=== PATIENT | male | born 1960 | race African-American/Black ===

== ENCOUNTER 2019-05-16 22:30 | Emergency (ER) | payer OTHER ==
[~2019-05-16] VITALS: Ht 170.2 cm; Wt 83.9 kg
[~2019-05-16 22:30] MED LIST: ASPIRIN81 M2 PO; COLACE100 MG PO; LEVAQUIN 500 M500 M2 PO; LISINOPRIL10 MG PO; NITROGLYCERIN0.4 MG SL; NON-ASPIRIN325 MG PO; PANTOPRAZOLE SO40 M1 PO; PLAVIX 75 MG TA75 M1 PO; SIMVASTATIN PO; TUMS PO
[2019-05-16] MEDS ORDERED: GABAPEN PO (22:41)
[2019-05-17 00:18] LABS: ABSOLUTE NEUTROPHILS 6.9 thou/uL (1.4-8.2); BASOPHILS 0.7 % (0.0-2.0); EOSINOPHILS 1.1 % (0.0-3.0); HEMATOCRIT 44.5 % (42.0-52.0); HEMOGLOBIN 14.8 gm/dL (14.0-18.0); LYMPHOCYTES 25.2 % (24.0-44.0); MCH 30.3 pg (26.0-34.0); MCHC 33.2 g/dL (28.0-37.0); PLATELET COUNT 400 thou/uL (150-400); RBC 4.89 mil/uL (4.50-6.00); RDW 13.9 % (10.5-14.5); WBC 10.9 thou/uL (4.0-11.0)
[2019-05-17 00:25] LABS: CALCIUM 9.6 mg/dL (8.5-10.1); CREATININE 1.1 mg/dL (0.7-1.3); POTASSIUM 4.7 mmol/L (3.5-5.1)
[2019-05-17] MEDS ORDERED: VALIUM5 MG PO (01:31)
[2019-05-17 02:12] VITALS: BP 195/101
== END 2019-05-17 02:16 | disposition home or self-care (01) ==
LOC: ER 22:30
PROVIDERS: Emergency Medicine Emergency Medical Services
DX: E11.40 Type 2 diabetes mellitus with diabetic neuropathy, unspecified (principal); M79.672 Pain in left foot; M79.671 Pain in right foot; I10 Essential (primary) hypertension; E78.00 Pure hypercholesterolemia, unspecified; I25.2 Old myocardial infarction; Z79.899 Other long term (current) drug therapy; Z90.89 Acquired absence of other organs

== ENCOUNTER 2020-09-18 17:33 | Emergency (ER) | payer OTHER ==
[~2020-09-18] VITALS: Ht 170.2 cm; Wt 74.8 kg
[~2020-09-18 17:33] MED LIST changes: +GABAPEN PO; +VALIUM5 MG PO
[2020-09-18 20:28] LABS: HEMATOCRIT 48.9 % (42.0-52.0); HEMOGLOBIN 16.2 gm/dL (14.0-18.0); MCH 30.2 pg (26.0-34.0); MCHC 33.1 g/dL (28.0-37.0); MCV 91.3 fL (80.0-100.0); RBC 5.36 mil/uL (4.50-6.00); RDW 14.2 % (10.5-14.5); WBC 12.9 thou/uL (4.0-11.0)
[2020-09-18 20:49] LABS: ANION GAP 5 mmol/L (7-16); BUN 15 mg/dL (7-18); CHLORIDE 104 mmol/L (98-107); CO2 28 mmol/L (21-32); CREATININE 1.2 mg/dL (0.7-1.3); GLUCOSE 335 mg/dL (74-106); POTASSIUM 4.9 mmol/L (3.5-5.1); SODIUM 137 mmol/L (136-145)
[2020-09-18 20:59] LABS: ALBUMIN 3.2 g/dL (3.4-5.0); SGOT 17 U/L (15-37); SGPT 15 U/L (16-63); TOTAL BILIRUBIN 0.2 mg/dL (0.2-1.0); TOTAL PROTEIN 7.4 g/dL (6.4-8.2); TROPONIN-I <0.06 ng/mL (<0.06)
[2020-09-18 22:22] LABS: URINE BILIRUBIN NEGATIVE (Negative); URINE BLOOD NEGATIVE (Negative); URINE CLARITY CLEAR; URINE COLOR YELLOW; URINE GLUCOSE-RANDOM* 3+ (Negative); URINE KETONES NEGATIVE (Negative); URINE LEUKOCYTES-REFLEX NEGATIVE (Negative); URINE NITRITE-REFLEX NEGATIVE (Negative); URINE PROTEIN (DIPSTICK) NEGATIVE (Negative); URINE SPECIFIC GRAVITY 1.015 (1.005-1.035); URINE UROBILINOGEN 0.2 E.U./dl (0.2-1.0)
[2020-09-19 05:00] VITALS: BP 154/111
--- NOTE | 2020-09-19 07:11 | EKG ---
[place] [address] [facility] [email or web address] [address] ELECTROCARDIOGRAM REPORT Name: MULUGETA WICK III Room #: [facility]#: [id number] Admission: 09/18/20 Attend Phys: Discharge: 09/19/20 Date of : 62 Report #: [id number] [facility] ED Test Date: 2020-09-18 Test Time: 18:07:46 Pat Name: MULUGETA WICK Department: Room: Gender: M [employer]: KATE : 1960 Requested By: Bryce Aleman Order Number: [id number] MD: Chinmay Frances Measurements Intervals [place] Rate: 88 P: 25 DC: 164 QRS: 4 QRSD: 84 T: 94 QT: 332 QTc: 402 Interpretive Statements Sinus rhythm Probable left atrial enlargement Borderline repolarization abnormality Borderline ST elevation, anterior leads Compared to ECG 01/13/2014 09:57:28 ST (T wave) deviation now present Sinus tachycardia no longer present Electronically Signed On 09-19-2020 7:11:22 CDT by Chinmay Frances [email or web address] <ELECTRONICALLY SIGNED> By: Chinmay Frances MD, [facility] 09/19/20710 06 06 Chinmay Frances MD, [facility] /EPI
== END 2020-09-19 05:12 | disposition short-term general hospital (02) ==
LOC: ER 17:33
PROVIDERS: Nurse Practitioner Family
DX: H54.7 Unspecified visual loss (principal); Z20.822 Contact with and (suspected) exposure to COVID-19; I10 Essential (primary) hypertension; Z79.899 Other long term (current) drug therapy; E78.00 Pure hypercholesterolemia, unspecified; Z90.89 Acquired absence of other organs; Z95.5 Presence of coronary angioplasty implant and graft; V49.49XA Driver injured in collision with other motor vehicles in traffic accident, initial encounter; Y93.I9 Activity, other involving external motion; Y92.413 State road as the place of occurrence of the external cause; Y99.8 Other external cause status